=== PATIENT | female | born 1995 | race American Indian/Alaskan Native ===

== ENCOUNTER → 2020-06-08 12:44 | Outpatient (CLI) | payer OTHER, SELFPAY ==
--- NOTE | 2020-06-08 12:51 | DI.US.S_ITS ---
PROCEDURE: US OB <= 14 WEEKS FETUS INDICATIONS: DATES OUTSIDE/PRIOR DATING DATA: Last menstrual period (LMP): 04/03/20. LMP-based estimated date of delivery (SMILEY): 01/08/21 First dating scan (date and location): 06/08/20, this study Estimated date of delivery (SMILEY) from first dating scan: 01/11/21 . TECHNIQUE: Real-time scanning was performed of the fetus and maternal pelvic organs, with image documentation. Endovaginal scanning was also performed to better visualize the fetus and maternal ovaries. COMPARISON: None. FINDINGS: Embryo: [place]-rump length of 2.3 cm correlates with a gestational age estimate of 9 weeks 0 days, +/-5 days. cardiac activity at 175 beats per minute was noted. Measurement variability in dating: +/- 4 weeks by LMP, +/- 7 days by mean sac diameter (use before 6 weeks gestation if crown-rump length not able to be measured), +/- 5 days by crown-rump length (up to 8 weeks 6 days gestation), +/- 7 days by crown-rump length (up to 13 weeks 6 days gestation). Maternal organs: Ovaries normal considering gestational status. Limited images through the kidneys demonstrate no hydronephrosis. IMPRESSION: Single living intrauterine gestation, with delivery date projected to be centered on 01/11/21, +/-5 days. Follow-up anatomic survey at 20 weeks gestation is recommended. Dictated by: Hal Cardozo M.D. on 06/08/2020 at 15:20 Approved by: Hal Cardozo M.D. on 06/08/2020 at 15:22
[2020-06-08 13:32] LABS: Add Manual Diff / Slide Review NO; Basophils Absolute Auto 100 /uL (0-100); Basophils Percent Auto 0.7 % (0-2); Eosinophils Absolute Auto 100 /uL (0-450); Eosinophils Percent Auto 0.8 % (2-4); Hematocrit 40.8 % (36-46); Hemoglobin 13.8 g/dL (12.0-16.0); Lymphocytes Absolute Auto 1900 /uL (1100-4500); Lymphocytes Percent Auto 25.6 % (25-40); Mean Corpuscular HGB Conc 33.7 % (30-36); Mean Corpuscular Hemoglobin 29.6 PG (26-34); Mean Corpuscular Volume 87.9 fL (80-100); Monocytes Absolute Auto 500 /uL (0-900); Monocytes Percent Auto 6.4 % (3-14); Neutrophils Absolute Auto 4900 /uL (1500-7000); Neutrophils Percent Auto 66.5 % (50-75); Platelet Count 268 X10^3/uL (150-400); Red Blood Cell Count 4.65 X10^6/uL (4.0-5.2); Red Cell Distribution Width 13.1 % (11.6-14.8); White Blood Cell Count 7.4 X10^3/uL (4.5-11.0)
[2020-06-08 13:39] LABS: Appearance Urine UA CLEAR; Bilirubin Urine UA NEGATIVE (NEGATIVE); Color Urine UA YELLOW; Glucose Urine UA NEGATIVE (Negative); Ketones Urine UA NEGATIVE (NEGATIVE); Leukocyte Esterase Urine UA NEGATIVE (NEGATIVE); Nitrite Urine UA NEGATIVE (Negative); Occult Blood Urine UA TRACE-LYSED (Negative); Protein Urine UA NEGATIVE (Negative); Urobilinogen Urine UA 0.2 E.U./dL (0.2)
[2020-06-09 08:11] LABS: RPR Screen Non Reactive (Non Reactive)
[2020-06-09 15:17] LABS: Hepatitis B Surface Antigen NEGATIVE s/c (NEGATIVE); Rubella Antibody IgG 7.6 IU/mL (>15)
[2020-06-09 15:35] LABS: HIV 1 & 2 Ab/Ag 4th Gen Combo NEGATIVE (NEGATIVE); Hep C Virus Ab w/Reflex Quant NEGATIVE s/c (NEGATIVE)
[2020-06-09 18:36] LABS: Varicella IgG Antibody <135 index (Immune >165)
== END ==
PROVIDERS: PCP Student in an Organized Health Care Education/Training Program; Referring Provider Specialist; Visit Provider Specialist
DX: Z34.01 Encounter for supervision of normal first pregnancy, first trimester (principal); Z3A.09 9 weeks gestation of pregnancy
CPT/HCPCS: 36415; 76801; 76817; 80055; 81003; 86787; 86803; 86850; 86900; 86901; 87086; 87389

== ENCOUNTER → 2020-08-13 10:47 | Outpatient (CLI) | payer OTHER, SELFPAY ==
[2020-08-15 21:16] LABS: Calc Gestational Age Ultrasound (.); Estriol, Free 1.21 ng/mL (.); Inhibin A, Dimeric 192.57 pg/mL (.); Inhibin A, MoM 1.15 (.); Maternal Ethnicity Other (.); Maternal Weight 157 lbs (.); Number of Fetuses No (.); OSBR Risk 1 IN 10000 (.); Results Report (.); Test Results *Screen Negative* (.); hCG, MoM 1.21 (.); hCG, Serum 30373 mIU/mL (.)
== END ==
PROVIDERS: PCP Student in an Organized Health Care Education/Training Program; Referring Provider Specialist; Visit Provider Specialist
DX: Z34.02 Encounter for supervision of normal first pregnancy, second trimester (principal); Z3A.18 18 weeks gestation of pregnancy
CPT/HCPCS: 36415; 82105; 82677; 84702; 86336

== ENCOUNTER → 2020-12-17 12:28 | Outpatient (ROUT) | payer OTHER, SELFPAY | PROVIDERS: PCP Student in an Organized Health Care Education/Training Program; Visit Provider Nurse Practitioner Obstetrics & Gynecology | DX: Z34.90 Encounter for supervision of normal pregnancy, unspecified, unspecified trimester (principal); Z36.85 Encounter for antenatal screening for Streptococcus B; Z3A.36 36 weeks gestation of pregnancy | CPT/HCPCS: 87081 ==

== ENCOUNTER 2021-01-05 15:15 | Outpatient (CLI) | payer OTHER, SELFPAY ==
--- NOTE | 2021-01-05 15:54 | PM.OBTRLD ---
Visit Information Visit Information Date of evaluation: 01/05/21 Primary OB Provider: Lola Penaloza On-call OB Provider: Kristin Duffy Reason for Evaluation: Yes rupture of membranes Comments/Additional reasons for admission: 25YO @ 41obq2l by sure LMP here for evaluation of suspected ROM. noticed her underwear were damp at 4am and changed them before going back to bed. Awoke @ 8am again w/ wet underwear and pantyliner. Noted clear fluid and lots of FM. Occasional mild ctx. Was instructed to come in for evaluation and [place] Has not noticed leaking fluid since then, peripad currently dry. Uncomplicated PN care w/ CNM. Vital Signs Vital Signs: BP 118/71, HR 106, T 36.2C Temporal PFSH Medical History Anxiety (~2016) Autoimmune disease Encounter for Nexplanon removal (~11/2019) Foot fracture, left Headache Lupus (systemic lupus erythematosus) Migraines Spontaneous ecchymoses Swelling of multiple joints Surgical History H/O hand surgery H/O wisdom tooth extraction Family History Mother Depression Hypertension Father Hyperlipidemia Prediabetes Sister Lupus Hormone imbalance Grandfather Enlarged heart DVT (deep venous thrombosis) Grandmother Sjogren's disease Liver disease Grandfather Diabetes mellitus Grandmother Diabetes mellitus Hyperlipidemia Sister Fibromyalgia Sister Autoimmune disorder Social History marital status: household members: spouse pets and animals: No education level: college (Grad with Counselling/Admin Degree) occupational status: employed current occupational exposures/hazards: Yes 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 Smoking Status: Never smoker second hand exposure: No alcohol intake: former (pre- : occasional) substance use type: does not use Review of Systems Review of Systems ROS: Yes All systems reviewed with the patient and are negative except as otherwise documented Exam Vital Signs (past 8 hours): see above Evaluation Evaluation Baseline heart rate: 135 Variability: Moderate (11-25) monitor accelerations: Present monitor decelerations: Variable Contraction Frequency (minutes): 15 Uterine Contraction Intensity: Mild Category of Tracing: Reactive Non-invasive Membranes Rupture Test: negative Comments: CE deferred Diagnosis, Plan/Disposition Final Diagnosis (1) Amniotic cavity/membrane problem suspected but not found: Status: Acute Plan/Disposition Plan: Discharge to home. Routine labor precautions. Changed next RONALD appt to 01/13/21 for post dates testing at that time and post dates IOL requested for cervical ripening 01/17/21 OB Disposition: home
== END 2021-01-05 15:58 | disposition home or self-care (01) ==
LOC: OB 01-06 07:10
PROVIDERS: PCP Student in an Organized Health Care Education/Training Program; Referring Provider Nurse Practitioner Obstetrics & Gynecology; Visit Provider Nurse Practitioner Obstetrics & Gynecology
DX: Z03.71 Encounter for suspected problem with amniotic cavity and membrane ruled out (principal); Z3A.39 39 weeks gestation of pregnancy
CPT/HCPCS: 59000; 59025; G0378; G0379

== ENCOUNTER 2021-01-06 18:23 | Inpatient (IN) | payer OTHER, SELFPAY ==
--- NOTE | 2021-01-06 18:32 | P.HPOB_ITS ---
OB HPI Date/Time Date of admission: 01/06/21 Date Patient Seen: 01/06/21 Time Patient Seen: 18:30 History of Present Condition Chief complaint: eval of labor : 1 Para: 0 Estimated Date of Delivery: 01/08/21 Estimated Gestational Age (weeks): 39.5 Narrative: Sheela Dennis is a 25 year old female @ [id number] by LMP and early US who presents for repeat evaluation of PROM. Awoke today at 0300 with wet underwear and legs. Has noted clear fluid and bloody show throughout the day today. Feeling good FM. Has had mild contractions all day, but they have not strengthened. Uncomplicated pN care w/ CNM. Desires low intervention . is present and supportive. History of Present care: good care, initiated at week # (9), number of visits (9) and pounds weight gain (31) Dating criteria: LMP confirmed by 1st trimester US Ultrasounds: normal mid trimester US Obstetrical complications: none Medical complications: none Preadmission Labs Blood type: B (+) positive -: Antibody screen: negative, GBS status: negative, HBsAG: negative, HIV: negative and RPR/VDLR: negative -: Chlamydia screen: not detected and Gonorrhea screen: not detected -: Rubella: not immune and Varicella: not immune HCT: 39.9 HCAB: negative Narrative: 2hr gtt: 91, 124, 113 Evaluation Evaluation Baseline heart rate: 130 Variability: Moderate (11-25) monitor accelerations: Present monitor decelerations: Absent Contraction Frequency (minutes): 3 Uterine Contraction Intensity: Mild Status: Category l Comments: CE deferred Gross rupture, clear w/ bloody show PFSH Medical History Anxiety (~2017) Autoimmune disease Encounter for Nexplanon removal (~11/2019) Foot fracture, left Headache Lupus (systemic lupus erythematosus) Migraines Spontaneous ecchymoses Swelling of multiple joints Surgical History H/O hand surgery H/O wisdom tooth extraction Family History Mother Depression Hypertension Father Hyperlipidemia Prediabetes Sister Lupus Hormone imbalance Grandfather Enlarged heart DVT (deep venous thrombosis) Grandmother Sjogren's disease Liver disease Grandfather Diabetes mellitus Grandmother Diabetes mellitus Hyperlipidemia Sister Fibromyalgia Sister Autoimmune disorder Social History marital status: household members: spouse pets and animals: No education level: college (Grad with Counselling/Admin Degree) occupational status: employed current occupational exposures/hazards: Yes 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 Smoking Status: Never smoker second hand exposure: No alcohol intake: former (pre- : occasional) substance use type: does not use Meds Home Medications and Allergies Home Medications Medication Instructions Recorded Confirmed Type acetaminophen 500 mg tablet 500 mg PO Q6H PRN 06/03/20 01/06/21 History prenat.vits,marni,slw-[id number] 1 tab PO DAILY 06/03/20 01/06/21 History Allergies Allergy/AdvReac Type Severity Reaction Status Date / Time Latex, Natural Rubber Allergy Intermediate Itchy Verified 07/01/20 13:57 mouth and Contact Skin Dermatitis Review of Systems Review of Systems ROS: Yes All systems reviewed with the patient and are negative except as otherwise documented Exam Resp Effort & Inspection: normal respiratory effort Auscultation: clear to auscultation bilaterally Cardio Rate: regular rate Rhythm: regular rhythm Heart Sounds: S1 normal Presentation: vertex Objective Labs Result Diagrams: 01/06/21 19:20 Assessment and Plan Assessment and Plan Assessment and Plan narrative: A: Term [place] PROM x 16 hours without sx of infection No indication for GBS prophylaxis Cat I FHR P: Admit routine orders w/ pitocin augmentation. Labor support PRN. CE after 2 hours of strong contractions. Reassess in 4 hours or sooner, PRN.
[2021-01-06 19:09] VITALS: BP 124/78
[2021-01-06 19:40] LABS: Add Manual Diff / Slide Review NO; Basophils Absolute Auto 100 /uL (0-100); Eosinophils Absolute Auto 100 /uL (0-450); Eosinophils Percent Auto 0.8 % (2-4); Hematocrit 42.6 % (36-46); Hemoglobin 14.2 g/dL (12.0-16.0); Lymphocytes Absolute Auto 2100 /uL (1100-4500); Lymphocytes Percent Auto 21.8 % (25-40); Mean Corpuscular HGB Conc 33.4 % (30-36); Mean Corpuscular Hemoglobin 29.5 PG (26-34); Mean Corpuscular Volume 88.3 fL (80-100); Monocytes Absolute Auto 700 /uL (0-900); Neutrophils Absolute Auto 6800 /uL (1500-7000); Neutrophils Percent Auto 69.4 % (50-75); Platelet Count 241 X10^3/uL (150-400); Red Blood Cell Count 4.82 X10^6/uL (4.0-5.2); Red Cell Distribution Width 14.5 % (11.6-14.8); White Blood Cell Count 9.8 X10^3/uL (4.5-11.0)
[2021-01-06] MEDS: LACTATED RINGERS 1,000 ML 100 ML IV (19:43)
[2021-01-06] MEDS: OXYTOCIN PREMIX 30 UNIT/500 ML PLAST..BAG IV (19:43)
[2021-01-06 19:46] LABS: COVID19 - ADMIT (NP swab/PCR) Negative (Negative)
--- NOTE | 2021-01-06 21:59 | PM.OBPNLAB ---
Date/Time Date Patient Seen: 01/06/21 Time Patient Seen: 22:00 Pain Control Pain control: tolerating well Comments: Patient sitting up, bouncing on the ball, talking to family via FaceTime. There was some difficulty with the IV start which delayed pitocin initiation to 2100. Contractions are stronger than upon admission 3 hours ago. She feels like the baby is lower now, than a few hours ago. VS: BP 121/80, HR 91bpm, T 36.3C Temporal Pelvic Exam Comments: CE deferred until strong ctx x 2 hours Contractions Contractions on admission: irregular Monitor mode: External Pitocin rate (mU/min): 4 Contraction frequency (min): 3 Contraction pattern: Regular Contraction intensity: Mild Status status: Category l Heart Rate Baseline: 135 Monitor Accelerations: Present Monitor Decelerations: Absent Monitor Variability: Moderate Assessment and Plan Assessment: other (PROM augmentation ) Plan: continuous present management Comments: Encouraged continued movement and upright positioning. Labor support PRN. Reassess in 4 hours or sooner, PRN.
--- NOTE | 2021-01-07 00:49 | PM.OBPNLAB ---
Date/Time Date Patient Seen: 01/07/21 Time Patient Seen: 00:30 Pain Control Pain control: other (Has been feeling strong contractions for 1 hour, breathing and occasionally ) Comments: Has been breathing through strong contractions since 2329. Continues to leak small amounts of clear, blood tinged fluid. Utilizing labor tub and states it is helping, but pain is 9/10. VS:BP 126/63, HR 89bpm, T 36.6C Temporal Pelvic Exam Dilation (cm): 1 Effacement (%): 80 station: 0 Amniotic membrane status: Leaking Contractions Contractions on admission: irregular Monitor mode: External Pitocin rate (mU/min): 10 Contraction frequency (min): 3 Contraction duration (min): 3 Contraction pattern: Regular Contraction intensity: Mild Status status: Category l Heart Rate Baseline: 140 Monitor Accelerations: Present Monitor Decelerations: Absent Monitor Variability: Moderate Assessment and Plan Assessment: induction ongoing (PROM IOL) Plan: continuous present management Comments: Discussed pain relief options and counseled on recommendation for continued pitocin in context of PROM x 22 hours because patient asked if pitocin could be shut off for her to get some sleep. Discussed option for Narayanan balloon catheter given low station of fetus and posterior cervix, may increase risk of infection during labor.
[2021-01-07] MEDS: fentaNYL 100 MCG/2 ML INJ IV ×3 (03:03→05:53)
--- NOTE | 2021-01-07 03:22 | PM.OBPNLAB ---
Date/Time Date Patient Seen: 01/07/21 Time Patient Seen: 15:00 Pain Control Pain control: other (Patient tolerating labor well with NO2. Consents to Narayanan balloon since there has been minimal cervical change since contractions got strong abpout 4 hours ago. ) Comments: VS: BP 115/74, HR 89bpm, RR 18/min, T 36.1C Temporal Pelvic Exam Dilation (cm): 1 Effacement (%): 80 station: 0 Amniotic membrane status: Leaking Contractions Contractions on admission: irregular Monitor mode: External Pitocin rate (mU/min): 10 Contraction frequency (min): 3 Contraction duration (min): 1 Contraction pattern: Regular Contraction intensity: Moderate Status status: Category l Heart Rate Baseline: 130 Monitor Accelerations: Present Monitor Decelerations: Variable Monitor Variability: Moderate Assessment and Plan Assessment: other (PROM augmentation) Comments: Fentanyl 100mcg IV administered and Narayanan balloon placed and inflated w/ 50mL NS. Continue pitocin titration to adequate contraction pattern. May resume NO2 if Fentanyl is no long effective or wearing off. Reassess in 4 hours or sooner, PRN.
[2021-01-07] MEDS: LACTATED RINGERS 1,000 ML 100 ML IV (05:53)
--- NOTE | 2021-01-07 06:49 | PM.OBPNLAB ---
Date/Time Date Patient Seen: 01/07/21 Time Patient Seen: 06:45 Pain Control Pain control: narcotic analgesia (x3 doses) and other (NO2) Comments: Currently tolerating labor well w/ NO2. Considering an epidural. Pelvic Exam Dilation (cm): 6 Effacement (%): 90 station: 0 Amniotic membrane status: Leaking Comments: Narayanan came out at 0440. AROM forebag w/ this exam Contractions Contractions on admission: irregular Monitor mode: External Pitocin rate (mU/min): 7 Contraction frequency (min): 2 Contraction duration (min): 1 Contraction pattern: Regular Contraction intensity: Moderate Status status: Category l Heart Rate Baseline: 135 Monitor Accelerations: Present Monitor Decelerations: Absent Monitor Variability: Moderate Assessment and Plan Assessment: active labor Plan: continuous present management Comments: Encouragement given on great cervical change since Narayanan balloon placement. Continue pitocin titration to adequate contractions pattern. Epidural when/if requested. Labor support PRN.
--- NOTE | 2021-01-07 09:39 | PM.OBPNLAB ---
Date/Time Date Patient Seen: 01/07/21 Time Patient Seen: 09:40 Pain Control Pain control: epidural Comments: Patient sleeping comfortably after epidural placed. Has had some low BPs improved w/ a 250mL IVFB. VS: BP 91/51, HR 110, T 98.1F Temporal Pelvic Exam Dilation (cm): 7 Effacement (%): 100 station: -1 Amniotic membrane status: Leaking Comments: CE by RN @ 0840 Contractions Contractions on admission: irregular Monitor mode: External Pitocin rate (mU/min): 9 Contraction frequency (min): 2 Contraction duration (min): 1 Contraction pattern: Regular Contraction intensity: Strong/Firm Status status: Category l Heart Rate Baseline: 135 Monitor Accelerations: Present Monitor Decelerations: Early and Late (shortly after epidural placement, resolved w/ IVFB, none since 0825) Monitor Variability: Moderate Assessment and Plan Assessment: active labor Plan: continuous present management Comments: Encourage rest between Q30 minute position changes. Reassess in 4 hours or sooner, PRN.
--- NOTE | 2021-01-07 11:41 | PM.OBPNLAB ---
Date/Time Date Patient Seen: 01/07/21 Time Patient Seen: 11:30 Pain Control Pain control: epidural Comments: Feeling increasing rectal pressure, has hit PCEA button. VS: BP 107/56, HR 96bpm, T 37.4C Temporal Pelvic Exam Dilation (cm): 9 Effacement (%): 100 station: 0 Amniotic membrane status: Leaking Contractions Contractions on admission: irregular Monitor mode: External Pitocin rate (mU/min): 9 Contraction frequency (min): 2 Contraction duration (min): 1 Contraction pattern: Regular Contraction intensity: Strong/Firm Status status: Category l Heart Rate Baseline: 130 Monitor Accelerations: Present Monitor Decelerations: Absent Monitor Variability: Moderate Assessment and Plan Assessment: active labor Plan: continuous present management Comments: Will work w/ anesthesia for adequate pain relief. Continue pitocin titration and position changes. Anticipate NSVB.
[2021-01-07] MEDS: TRANEXAMIC ACID 1,000 MG in SODIUM CHLORIDE 0.9% 100 ML 400 ML IV (15:55)
--- NOTE | 2021-01-07 15:59 | PM.OBPRVD ---
Events: Labor Augmentation (pitocin) and Premature Rupture Membrane (PROM x 36 hours) Labor & Delivery Delivery date: 01/07/21 Delivery augmentation: pitocin Delivery monitor: external FHT and external uterine Route of delivery: L&D Laceration Description: Perineal - 2nd Degree Delivery repair: chromic (3.0) Estimated blood loss (mL): 650 Anesthesia Type: Epidural Narrative: Patient felt increasing rectal pressure and was C/C/+1 @ 1356. Coaching, encouragement and position changes led to slow, but steady descent of vertex w/ reassuring FHTs throughout 2nd stage. NSVB of a vigorous baby boy in FRANCI position w/ a compound left hand. There was no nuchal cord and shoulders delivered witout additional maneuvers. was placed on maternal abdomen for drying and skin to skin. Remaining 30 units of pitocin in 500mL LR was increased to 250mL/hr for AMTSL. After cessation of pulsation, the cord was double clamped by CNM and cut by FOB. Hospital cord blood hold sample was collected. Gentle cord traction and single maternal push led to spontaneous, Schultze delivery of an apparently intact placenta, membranes and 3VC. Fundus immediately firm, but massaged frequently for clots and heavy bleeding. TXA and misoprostil were given. Inspection revealed a 2nd degree perineal laceration which was repaired w/ 3.0 Chromic in the usual fashion, under adequate epidural anesthesia. Bleeding slowed to a trickle. Both mother and baby stable and skin to skin as I left the room. QBL 650mL. Baby 1: Infant gender: Male Presentation: vertex Position: Left Occiput Anterior Placenta delivery description: Spontaneous Cord Vessel Description: 3 Vessels score (1 min): 8 score (5 min): 9 Plan for aftercare: Routine care
[2021-01-07] MEDS: IBUPROFEN 600 MG TABLET PO (19:52)
[2021-01-07] MEDS: OXYCODONE IR 5 MG TABLET PO (20:39)
[2021-01-08] MEDS: OXYCODONE IR 5 MG TABLET PO ×3 (03:56→16:29)
[2021-01-08] MEDS: DERMOPLAST SPRAY 20% 60 ML 1 SPRAY TOP (08:30)
[2021-01-08] MEDS: DOCUSATE 100 MG CAPSULE PO (08:31)
[2021-01-08] MEDS: IBUPROFEN 600 MG TABLET PO ×2 (08:31→16:28)
[2021-01-08] MEDS: ACETAMINOPHEN 325 MG TABLET 650 MG PO (08:32)
--- NOTE | 2021-01-08 12:02 | PM.OBDS.1 ---
Discharge Providers Provider Date of admission: 01/06/21 18:23 Discharge Date: 01/08/21 Primary care physician: Robbin Connolly MD Consults: 01/08/21 15:57 Consult to [employer] Routine Comment: Discharge provider: Lola Penaloza CNM Summary Discharge Diagnosis (1) Second degree perineal laceration during delivery: Status: Acute Time Spent with Patient Time attestation: Total time spent providing and/or coordinating discharge services: Objective Labs Result Diagrams: 01/06/21 19:20 Exam Vital Signs (past 8 hours): BP 112/69, HR 81bpm, RR 16/min, T 98.0F Temporal Other: Fundus firm @ u-1, lochia scant, perineum well approximated w/ minimal edema Discharge Plan Discharge Plan Patient Disposition: Home Discharge orders & Medications Prescriptions: New acetaminophen 325 mg Tablet 650 mg PO Q6HR PRN (Reason: Pain, Mild (1-3)) 14 Days Qty: 60 RF: 0 ibuprofen 600 mg Tablet 600 mg PO Q6HR PRN (Reason: Pain, Mild (1-3)) 14 Days Qty: 60 RF: 0 oxycodone 5 mg Tablet 5 mg PO Q4HR PRN (Reason: Pain, Moderate (4-6)) 7 Days Qty: 14 RF: 0 Continued prenat.vits,marni,omi-jcef-rylbz Tablet 1 tab PO DAILY RF: 0 Discontinued acetaminophen [Tylenol Extra Strength] 500 mg tablet 500 mg PO Q6H PRN (Reason: Pain (Scale Score 1-3)) RF: 0 Follow up/Referrals: Robbin Connolly MD [Primary Care Provider] - Lola Penaloza CNM [[facility]] - (Follow-up by Telehealth 01/25/21 @ 0900 Follow-up in office 02/15/21 @ 1200) Diet/Activity/Treatments Diet: Diet as Tolerated Activity: pelvic rest x 6 weeks Skin/Wound/Dressing Care Report to your healthcare provider any signs of infection, such as:: chills, fever, increased pain, unusual drainage and unusual redness Visit Report/Discharge Packet Instructions: DI for Depression Discharge Data Primary Care Provider: Robbin Connolly
== END 2021-01-08 17:20 | disposition home or self-care (01) | DRG 807 ==
PROVIDERS: Admitting Provider Nurse Practitioner Obstetrics & Gynecology; PCP Student in an Organized Health Care Education/Training Program; Referring Provider Nurse Practitioner Obstetrics & Gynecology; Visit Provider Nurse Practitioner Obstetrics & Gynecology
DX: O42.12 Full-term premature rupture of membranes, onset of labor more than 24 hours following rupture (principal); Z37.0 Single live birth; Z3A.39 39 weeks gestation of pregnancy; O70.1 Second degree perineal laceration during delivery; Z20.822 Contact with and (suspected) exposure to COVID-19
CPT/HCPCS: 01967; 36415; 59050; 85025; 86850; 86900; 86901; 87635; G0379; J2590; J3010

== ENCOUNTER → 2021-09-01 10:06 | Outpatient (CLI) | payer SELFPAY ==
--- NOTE | 2021-09-01 | DI.US.S_ITS ---
PROCEDURE: US OB <= 14 WEEKS FETUS INDICATIONS: DATES OUTSIDE/PRIOR DATING DATA: Last menstrual period (LMP): June 30, 2021. LMP-based estimated date of delivery (SMILEY): April 06, 2022. First dating scan (date and location): [facility]; September 01, 2021. Estimated date of delivery (SMILEY) from first dating scan: April 27, 2022. The calculations are made using the ultrasound SMILEY of April 27, 2022 TECHNIQUE: Real-time scanning was performed of the fetus and maternal pelvic organs, with image documentation. Endovaginal scanning was also performed to better visualize the fetus and maternal ovaries. COMPARISON: [facility], US, US OB <= 14 WEEKS FETUS, 06/08/2020, 14:25. FINDINGS: Embryo: Measures 3.8 mm, compatible with a gestational age of 6 weeks Heart rate: 120 beats per minute Maternal organs: Thick-walled echogenic lesion in the left ovary, likely reflecting a corpus luteum. The right ovary is normal. IMPRESSION: 1. Live single intrauterine gestation as detailed above. We strive to produce accurate, complete, and clear reports of imaging services. To assist us in improving patient care, this report was composed using standard report templates and voice recognition software. Therefore, it may contain abnormal punctuation, insertions and/or omissions. Occasional wrong-word or sound-alike substitutions may occur. Though we review the report and make efforts to correct it, we do recommend that the report be read carefully in proper context to recognize any text inaccuracies. Dictated by: Kevan Russo M.D. on 09/01/2021 at 10:43 Approved by: Kevan Russo M.D. on 09/01/2021 at 10:46
== END ==
PROVIDERS: PCP Student in an Organized Health Care Education/Training Program; Referring Provider Nurse Practitioner Obstetrics & Gynecology; Visit Provider Nurse Practitioner Obstetrics & Gynecology
DX: Z36.87 Encounter for antenatal screening for uncertain dates (principal); Z3A.01 Less than 8 weeks gestation of pregnancy
CPT/HCPCS: 76801; 76817